=== PATIENT | female | born 1985 | race Two or more races ===

== ENCOUNTER 2022-09-07 11:13 | Emergency (ER) | payer SELFPAY ==
[~2022-09-07] VITALS: Ht 165.1 cm; Wt 85.0 kg
[2022-09-07 11:23] VITALS: BP 143/95
[2022-09-07 11:29] VITALS: BP 127/97
[2022-09-07 11:30] VITALS: BP 126/88
[2022-09-07 11:53] LABS: BASO% 0.5 % (0-3); EOS% 3.7 % (0-8); HEMOGLOBIN 13.3 g/dl (12.0-16.0); IMMATURE GRANULOCYTES 0.3 % (0.0-5.0); LYMPH% 28.4 % (15-41); MEAN CORPUSCULAR HGB 27.3 pG CALC (26.0-32.0); MEAN CORPUSCULAR HGB CONC 32.4 g/dL CAL (32.0-36.0); MONO% 6.2 % (2-13); NEUT# 5.72 thou/uL (2.00-7.15); NEUT% 60.9 % (42-76); RED BLOOD COUNT 4.88 mill/uL (4.20-5.60); RED CELL DISTRI WIDTH 13.5 % (11.5-15.5)
[2022-09-07 12:22] LABS: ALBUMIN 4.8 g/dL (3.2-5.0); ALKALINE PHOSPHATASE 85 u/l (38-126); ANION GAP 15 (6-22 (CALC)); BILIRUBIN, TOTAL 0.3 mg/dL (0.02-1.3); BUN 5 mg/dL (7-17); BUN/CREATININE RATIO 7 (12-20 (CALC)); CARBON DIOXIDE 25 mmol/l (22-30); CHLORIDE 105 mmol/l (95-108); CREATININE 0.7 mg/dL (0.5-1.0); GFR FOR AFR.AMER. > 60 ML/MIN (>=60 (CALC)); GFR OTHER RACES > 60 ML/MIN (>=60 (CALC)); POTASSIUM 3.8 mmol/l (3.5-5.1); SGOT/AST 35 u/l (14-36); SODIUM 141 mmol/l (137-146); TOTAL PROTEIN 8.4 g/dL (6.3-8.2)
[2022-09-07 12:40] LABS: BETA-HCG, QUANT(RESULT NUMBER) 19 mIU/mL
[2022-09-07 14:05] VITALS: BP 126/88
== END 2022-09-07 14:19 | disposition home or self-care (01) | DRG 833 ==
LOC: ED 11:13
PROVIDERS: Family Medicine
DX: O46.90 Antepartum hemorrhage, unspecified, unspecified trimester (principal); Z3A.00 Weeks of gestation of pregnancy not specified

== ENCOUNTER 2022-09-09 11:51 | Emergency (ER) | payer SELFPAY ==
[~2022-09-09] VITALS: Ht 165.1 cm; Wt 81.6 kg
[2022-09-09 14:54] VITALS: BP 126/80
== END 2022-09-09 15:00 | disposition home or self-care (01) | DRG 779 ==
LOC: ED 11:51
DX: O03.9 Complete or unspecified spontaneous abortion without complication (principal)